=== PATIENT | female | born 1950 | race Caucasian/White ===

== ENCOUNTER 2017-06-01 19:14 | Emergency (ER) | payer MEDICARE, BC ==
--- NOTE | 2017-06-01 20:16 | UC ---
Complaint Female HPI - HPI Summary HPI Summary: Pt c/o bladder spasm X 7 days. Pt has history of frequent UTI's and began taking macrodantin two times daily 7 days ago. Pt nieves frequency, urgency or dysuria, has c/o of "bladder spasm" X7 days. - History Of Current Complaint Stated Complaint: URINARY Time Seen by Provider: 06/01/17 19:58 Hx Obtained From: Patient ?: No Onset/Duration: Sudden Onset, Lasting Days - 7, Still Present Timing: Intermittent, Lasting Minutes Severity Initially: Mild Severity Currently: Mild Character: Dull Aggravating Factor(s): Urination Related Hx: Similar Episode/Dx as: - UTI - Allergies/Home Medications Allergies/Adverse Reactions: Allergies Allergy/AdvReac Type Severity Reaction Status Date / Time Erythromycin [From E-Mycin] Allergy Hives Verified 06/01/17 20:06 Morphine Allergy Unknown Verified 06/01/17 20:06 Reaction Details Penicillins [PCN] Allergy Hives Verified 06/01/17 20:06 Sulfa Antibiotics Allergy Hives Verified 06/01/17 20:06 Home Medications: Home Medications Nitrofurantoin Macrocrystals* [Macrodantin*] 100 mg PO DAILY PRN 06/01/17 [ History Confirmed 06/01/17] Graham-3 Fatty Acids [Fish Oil] 1,000 mg PO DAILY 06/01/17 [History Confirmed ] PMH/Surg Hx/FS Hx/Imm Hx Previously Healthy: Yes GI/ History: Other - UTI Other GI/ History: uti - Surgical History Surgical History: Yes Surgery Procedure, Year, and Place: lumpectomy. gallbladder - Family History Known Family History: Positive: Hypertension - Social History Occupation: Retired Lives: With Family Alcohol Use: Rare Substance Use Type: None Smoking Status (MU): Never Smoked Tobacco Have You Smoked in the Last Year: No - Immunization History Most Recent Influenza Vaccination: none Review of Systems Constitutional: Negative Skin: Negative Eyes: Negative ENT: Negative Respiratory: Negative Cardiovascular: Negative Gastrointestinal: Negative Genitourinary: Other - bladder spasm Motor: Negative Neurovascular: Negative Musculoskeletal: Negative Neurological: Negative Psychological: Negative All Other Systems Reviewed And Are Negative: Yes Physical Exam Triage Information Reviewed: Yes Vital Signs: Initial Vital Signs Temp 99 F 06/01/17 20:09 Pulse 66 06/01/17 20:09 Resp 16 06/01/17 20:09 BP 153/84 06/01/17 20:09 Pulse Ox 98 06/01/17 20:09 Complaint Female Dx - Differential Dx/Diagnosis Differential Diagnosis/HQI/PQRI: Urinary Tract Infection Provider Diagnoses: bladder spasm Discharge - Discharge Plan Condition: Stable Disposition: HOME Prescriptions: Phenazopyridine TAB* [Pyridium 100 mg TAB*] 100 mg PO TID #6 tab Patient Education Materials: Pelvic Pain in Women (ED) Referrals: Allie Colon MD [Primary Care Provider] - If Needed
[2017-06-01 20:18] VITALS: BP 153/84
[2017-06-01] MEDS ORDERED: Phenazopyridine TAB* 100 MG PO ONE (20:43)
--- NOTE | 2017-06-03 10:35 | UC ---
Progress - Progress Note Progress Note: Urine culture is negative. Stop the macrobid.
== END 2017-06-01 20:53 | disposition home or self-care (01) ==
LOC: UCCORT 19:14
DX: N32.89 Other specified disorders of bladder (principal); Z87.440 Personal history of urinary (tract) infections; Z88.3 Allergy status to other anti-infective agents; Z88.5 Allergy status to narcotic agent; Z88.0 Allergy status to penicillin; Z88.2 Allergy status to sulfonamides
CPT/HCPCS: 87086; 99212; A9270-GY; G0463

== ENCOUNTER 2018-02-21 18:37 | Emergency (ER) | payer MEDICARE, BC ==
[2018-02-21 19:27] VITALS: BP 134/68
--- NOTE | 2018-02-21 19:41 | UC ---
UC General HPI - HPI Summary HPI Summary: pt states became ill with sinus congestion 2 weeks ago. it has moved to her chest. she is having a cough with green sputum and some lung tightness. she has a hx of asthma. pt denies cp and fever but is feeling run down. - History of Current Complaint Chief Complaint: UCRespiratory Stated Complaint: CONGESTION,COUGH,FATIGUE Time Seen by Provider: 02/21/18 19:26 Hx Obtained From: Patient Onset/Duration: Gradual Onset Timing: Constant Pain Intensity: 0 Associated Signs & Symptoms: Positive: Cough. Negative: Chest Pain, Fever - Allergy/Home Medications Allergies/Adverse Reactions: Allergies Allergy/AdvReac Type Severity Reaction Status Date / Time erythromycin base Allergy Intermediate Hives Verified 02/21/18 19:18 Penicillins Allergy Intermediate Hives Verified 02/21/18 19:18 Sulfa (Sulfonamide Allergy Intermediate Hives Verified 02/21/18 19:19 Antibiotics) morphine Allergy Unknown Unknown Verified 02/21/18 19:18 Reaction Details PMH/Surg Hx/FS Hx/Imm Hx - Additional Past Medical History Additional PMH: "extra beats" Endocrine History: Thyroid Disease Respiratory History: Asthma GI/ History: Gastroesophageal Reflux - Surgical History Surgical History: Yes Surgery Procedure, Year, and Place: lumpectomy. gallbladder - Family History Known Family History: Positive: Hypertension - Social History Occupation: Retired Lives: With Family Alcohol Use: Rare Substance Use Type: None Smoking Status (MU): Never Smoked Tobacco Have You Smoked in the Last Year: No - Immunization History Most Recent Influenza Vaccination: none Vaccination Up to Date: Yes Review of Systems Constitutional: Negative Skin: Negative Eyes: Negative ENT: Negative Respiratory: Shortness Of Breath, Cough Cardiovascular: Negative Gastrointestinal: Negative Genitourinary: Negative Motor: Negative Neurovascular: Negative Musculoskeletal: Negative Neurological: Negative Psychological: Negative Is Patient Immunocompromised?: No All Other Systems Reviewed And Are Negative: Yes Physical Exam Triage Information Reviewed: Yes Appearance: Well-Appearing Vital Signs: Initial Vital Signs Temp 98.1 F 02/21/18 19:21 Pulse 69 02/21/18 19:21 Resp 18 02/21/18 19:21 BP 134/68 02/21/18 19:21 Pulse Ox 98 02/21/18 19:21 Vital Signs Reviewed: Yes Eyes: Positive: Conjunctiva Clear ENT: Positive: Pharynx normal, TMs normal. Negative: Nasal congestion, Nasal drainage Neck: Positive: Supple, Nontender, No Lymphadenopathy Respiratory: Positive: Lungs clear, No respiratory distress, Decreased breath sounds, Other: - congested cough Cardiovascular: Positive: RRR, No Murmur Abdomen Description: Positive: Nontender, No Organomegaly, Soft Bowel Sounds: Positive: Present Musculoskeletal: Positive: ROM Intact Neurological: Positive: Alert Psychological: Positive: Age Appropriate Behavior Skin Exam: Normal Course/Dx - Course Course Of Treatment: non toxic, no cp and not hypoxic. will tx for asthma and cover for bacterial infection. - Differential Dx - Multi-Symptom Provider Diagnoses: asthma flare Discharge - Sign-Out/Discharge Documenting (check all that apply): Discharge/Admit/Transfer - Discharge Plan Condition: Stable Disposition: HOME Prescriptions: Albuterol HFA INHALER* [Ventolin HFA Inhaler*] 2 puff INH Q6H #1 mdi DOXYcycline CAP(*) [DOXYcycline 100MG CAP(*)] 100 mg PO BID 7 Days #14 cap predniSONE TAB* [Deltasone TAB*] 40 mg PO DAILY 5 Days #10 tab Patient Education Materials: Asthma (DC) Referrals: Allie Colon MD [Primary Care Provider] - 5 Days - Billing Disposition and Condition Condition: STABLE Disposition: HOME
== END 2018-02-21 19:52 | disposition home or self-care (01) ==
LOC: UCCORT 18:37
DX: J45.909 Unspecified asthma, uncomplicated (principal); Z88.1 Allergy status to other antibiotic agents; Z88.0 Allergy status to penicillin; Z88.2 Allergy status to sulfonamides; Z88.5 Allergy status to narcotic agent
CPT/HCPCS: 99212; G0463